=== PATIENT | male | born 1990 | race Asian ===

== ENCOUNTER 2022-08-30 12:59 | Outpatient (CLI) | payer OTHER | END 2022-08-30 22:55 | disposition home or self-care (01) | LOC: RAD 12:59 | PROVIDERS: ATTEND Family Medicine | DX: R05.9 Cough, unspecified (principal); R63.4 Abnormal weight loss; R10.9 Unspecified abdominal pain ==

== ENCOUNTER 2022-09-04 12:34 | Outpatient (CLI) | payer OTHER | END 2022-09-04 19:56 | disposition home or self-care (01) | LOC: CT 12:34 | PROVIDERS: ATTEND Family Medicine | DX: R93.89 Abnormal findings on diagnostic imaging of other specified body structures (principal); R05.9 Cough, unspecified; R63.4 Abnormal weight loss; R10.9 Unspecified abdominal pain | CPT/HCPCS: Q9963 ==

== ENCOUNTER 2023-04-08 08:11 | Outpatient (CLI) | payer OTHER | END 2023-04-08 18:50 | disposition home or self-care (01) | LOC: CT 08:11 | PROVIDERS: ATTEND Family Medicine | DX: R91.8 Other nonspecific abnormal finding of lung field (principal); R05.9 Cough, unspecified; R63.4 Abnormal weight loss; R10.9 Unspecified abdominal pain; R14.0 Abdominal distension (gaseous) | CPT/HCPCS: Q9963 ==